=== PATIENT | female | born 1980 | race Caucasian/White ===

== ENCOUNTER 2017-04-06 06:26 | Day surgery (SDC) | payer OTHER ==
--- NOTE | ~2017-04-06 | EGD ---
EGD REPORT [facility] [address] [address] NAME: VANDANA CARREON : [birth year] STATUS : REG [facility] [place] PAT#: [id number] AGE: 36 ADM/REG DATE : 04/06/17 MR#: [id number] REPORT SERV DATE: 04/06/17 DICTATED BY: ALEXANDRA TORRES DATE: 04/06/17 REPORT STATUS : Draft TRANSCRIBED BY: [facility] DATE: 04/06/17 Endoscopy Center Patient Name: Vandana Carreon Date of : 1980 Attending MD: ALEXANDRA TORRES MD Procedure Date No Time: 04/06/2017 Procedure: Colonoscopy Indications: Abdominal pain in the right lower quadrant, Constipation Referring MD: TWIN LEÓN Medicines: as per anesthesia Complications: No immediate complications. Procedure: After I obtained informed consent, the scope was passed under direct vision. Throughout the procedure, the patient's blood pressure, pulse, and oxygen saturations were monitored continuously. The PCF [id number] was introduced through the anus and advanced to the cecum, identified by appendiceal orifice and ileocecal valve. The colonoscopy was performed without difficulty. The patient tolerated the procedure. The quality of the bowel preparation was adequate to identify polyps. Findings: The perianal and digital rectal examinations were normal. The colon (entire examined portion) appeared normal. Impression: - The entire examined colon is normal. Recommendation: - Repeat colonoscopy at age 52 for surveillance. Procedure Code(s): --- Professional --- 83920, Colonoscopy, flexible, proximal to splenic flexure; diagnostic, with or without collection of specimen(s) by brushing or washing, with or without colon decompression (separate procedure) Diagnosis Code(s): --- Professional --- R10.31, Right lower quadrant pain K59.00, Constipation, unspecified CPT copyright 2013 [employer]. All rights reserved. The codes documented in this report are preliminary and upon parasitology teacher review may be revised to meet current compliance requirements. EGD REPORT [facility] [address] [address] NAME: VANDANA CARREON : [birth year] STATUS : REG [facility]#: [id number] AGE: 36 ADM/REG DATE : 04/06/17 MR#: [id number] REPORT SERV DATE: 04/06/17 DICTATED BY: ALEXANDRA TORRES. DATE: 04/06/17 REPORT STATUS : Draft TRANSCRIBED BY: [employer] DATE: 04/06/17 ALEXANDRA TORRES MD 04/06/2017 9:35 AM This report has been signed electronically. Number of Addenda: 0 Note Initiated On: 04/06/2017 8:52 AM Scope Withdrawal Time 0 hours 6 minutes 6 seconds [address] [address]
--- NOTE | ~2017-04-06 | EGD ---
EGD REPORT [facility] [address] [address] NAME: VANDANA CARREON : [birth year] [place] [facility] [place] [id number] AGE: 36 ADM/REG DATE : 04/06/17 MR#: [id number] REPORT SERV DATE: 04/06/17 DICTATED BY: ALEXANDRA TORRES DATE: 04/06/17 REPORT STATUS : Draft [facility]CRIBED BY: [facility] DATE: 04/06/17 Endoscopy Center Patient Name: Vandana Carreon Date of : 1980 Attending MD: ALEXANDRA TORRES MD Procedure Date No Time: 04/06/2017 Procedure: Upper GI endoscopy Indications: Heartburn, Suspected esophageal reflux, Abdominal bloating, Nausea Referring MD: TWIN LEÓN Medicines: as per anesthesia Complications: No immediate complications. Procedure: Pre-Anesthesia Assessment: - ASA Grade Assessment: I - A normal, healthy patient. After obtaining informed consent, the endoscope was passed under direct vision. Throughout the procedure, the patient's blood pressure, pulse, and oxygen saturations were monitored continuously. The GIF H190 [id number] was introduced through the mouth, and advanced to the third part of duodenum. The upper GI endoscopy was accomplished without difficulty. The patient tolerated the procedure. Findings: The examined esophagus was normal. The entire examined stomach was normal. The cardia and gastric fundus were normal on retroflexion. The examined duodenum was normal. Biopsies were taken with a cold forceps for histology. Impression: - Normal esophagus. - Normal stomach. - Normal examined duodenum. Biopsied. Recommendation: - Await pathology results. - Follow an antireflux regimen. - Continue present medications. Procedure Code(s): --- Professional --- 65116, Esophagogastroduodenoscopy, flexible, transoral; with biopsy, single or multiple Diagnosis Code(s): --- Professional --- R12, Heartburn R14.0, Abdominal distension (gaseous) EGD REPORT [facility] [address] [place]. [address] NAME: VANDANA CARREON : [birth year] STATUS : REG [facility] PAT#: [id number] AGE: 36 ADM/REG DATE : 04/06/17 MR#: [id number] REPORT SERV DATE: 04/06/17 DICTATED BY: ALEXANDRA TORRES. DATE: 04/06/17 REPORT STATUS : Draft TRANSCRIBED BY: [employer] DATE: 04/06/17 R11.0, Nausea CPT copyright 2013 [employer]. All rights reserved. The codes documented in this report are preliminary and upon surgical coder review may be revised to meet current compliance requirements. ALEXANDRA TORRES MD 04/06/2017 9:12 AM This report has been signed electronically. Number of Addenda: 0 Note Initiated On: 04/06/2017 8:53 AM Scope Withdrawal Time 0 hours 0 minutes 0 seconds [address] [facility] [place] [address]
[~2017-04-06 06:26] MED LIST: LINZESS 290 M290 MCG PO; NUVARING1 EACH V; ONABOTULINUMTOXINA SC; PHAZYME PO; PREV30 PO
== END 2017-04-06 23:59 | disposition home health service (06) ==
LOC: DMU 06:26
PROVIDERS: Internal Medicine Gastroenterology
PROC: 0DB98ZX Excision of Duodenum, Via Natural or Artificial Opening Endoscopic, Diagnostic (ICD-10-PCS; principal; 2017-04-06 08:00)
PROC: 0DJD8ZZ Inspection of Lower Intestinal Tract, Via Natural or Artificial Opening Endoscopic (ICD-10-PCS; 2017-04-06 08:00)
DX: R10.31 Right lower quadrant pain (principal); R14.0 Abdominal distension (gaseous); K21.9 Gastro-esophageal reflux disease without esophagitis; G43.909 Migraine, unspecified, not intractable, without status migrainosus; Z88.2 Allergy status to sulfonamides; Z79.899 Other long term (current) drug therapy; Z87.891 Personal history of nicotine dependence; Z98.890 Other specified postprocedural states
CPT/HCPCS: 84703; 88305